=== PATIENT | female | born 1995 | race Caucasian/White ===

== ENCOUNTER 2020-02-12 12:20 | Inpatient (IN) | payer SELFPAY, OTHER ==
[2020-02-12] VITALS (19 sets, daily range): BP systolic 101–132; BP diastolic 53–84; PULSE 68–98; RESP 13–20; TEMP 36.4–37.3; O2SAT 93–98; BMI 33.7
[2020-02-12] MEDS: Lactated Ringers 1,000 ML 999 ML IV (12:45)
--- NOTE | 2020-02-12 12:51 | HP.PCM_ITS ---
History Date of Admission: 02/12/20 Final JACQUELYN: 02/14/20 Final JACQUELYN Source: US <20 weeks Gestational age: 39 Weeks and 5 Days History of this : This is a 24 year-old, @ 39 5/7 weeks gestation by LMP presents c/o ctxs. Patient presents with her training and quality manager. They report that she has been laboring for a couple of days with some irregular contractions. She denies any gross vaginal bleeding or leaking of fluid. Earlier this morning the training and quality manager checked the patient who was found to be approximately 7 cm and was felt to be compound presentation or nonvertex. She called me and I instructed them to immediately go to the hospital. She arrived to labor and delivery. I performed a brief ultrasound confirming to heart tones and breech presentation of baby A in vertex presentation of baby B. Patient and the training and quality manager denies any problems during the . Blood pressures have been normal. They states she had an ultrasound approximately 2 months ago which confirmed that they were AGA x2. Allergies No Known Allergies Allergy (Verified 02/12/20 12:49) Smoking Status: Never smoker Alcohol: None Number of Fetus(es): 2 History Past Pregnancies: Past Pregnancies Delivery Date Name GA/ Weeks Outcome Route Wt Sex Labor Length Anesthesia Delivery Location Provider FOB Expected Infant Delivery Method: Primary Section - ROCIO Review of Systems Constitutional: Denies: Chills, Fever Eyes: Denies: Blurred vision Cardiovascular: Denies: Chest Pain Respiratory: Denies: Cough Gastrointestinal: Denies: Diarrhea, Nausea, Vomiting Genitourinary: Denies: Dysuria Skin: Denies: Rash Neurological: Denies: Blurred vision, Change in Speech, Slurred speech Hematologic/ Lymphatic: Denies: Anemia, Hx of blood clot Physical Exam Vitals: Vital Signs Temp 99.1 F 02/12/20 12:39 General: Alert, Cooperative, No apparent distress Cardiovascular: Regular rate Lungs: Normal air movement Abdomen: Bowel Sounds Present, Non-Distended, Gravid, Appropriate for Gestational Age - with twins Extremities:: Other - edema 1+ Neurological: Neuro grossly intact Estimated gestational size: Appropriate for gestational size Presentation: Breech Assessment/Plan This is a 24 year-old, 1 para 0 at 39-5/7 weeks with attic dichorionic twin gestation, breech presentation of fetus A. Risk benefits and alternatives and personnel involved with primary section were discussed with the patient and her , questions were answered to their satisfaction they desired to proceed. We will have SCDs, antibiotic prophylaxis. Offered rapid Covid testing and patient is deciding. We will proceed as soon as possible pending lab results so we can place a spinal and less heart tones are nonreassuring or emergent indication arises.
[2020-02-12 12:58] LABS: Bacteria 0 SEEN /hpf (None Seen); Mucous, Urine 0 SEEN /hpf (<or=2+); Red Blood Cells-Urine 0 SEEN /hpf (0-5)
[2020-02-12 13:04] LABS: Absolute Neutrophil Count 8.8 X10^3/uL (2.0-7.7); Basophil# 0.01 X10^3/uL; Basophil% 0.1 % (0-1); Eosinophil# 0.14 X10^3/uL; Eosinophils% 1.2 % (0-5); Hemoglobin 13.1 g/dL (12.0-15.0); Lymphocyte % 19.9 % (19-41); Mean Corp Hgb Conc 32.8 g/dL (32-36); Mean Corpuscular Hgb 30.3 pg (27.0-32.0); Mean Corpuscular Volume 92.4 fL (81-99); Mean Platelet Vol. 10.6 fl (6.2-12.0); Monocyte# 0.61 X10^3/uL; NRBC Flagged by Analyzer 0 % (0-5); Neutrophil # 8.83 X10^3/uL (2.7-7.7); Neutrophil % 73.1 % (47-70); Platelet Count 180 K/mm3 (150-450); RBC Distribution Width CV 13.5 % (11.6-14.6); RBC Distribution Width SD 46.2 fl (35.1-43.9); Red Blood Count 4.33 M/mm3 (4.2-5.4); White Blood Count 12.1 K/mm3 (4.4-11.0)
[2020-02-12 13:13] LABS: Color, Urine Yellow (Yellow); Glucose, Dipstick Normal (Normal); Ketone-Dipstick Negative (Negative); Leukocyte Esterase-Dipstick 25 /ul (Negative); Nitrite-Dipstick Negative (Negative); Occult Blood-Urine Negative /ul (Negative); Protein-Dipstick Negative (Negative); Specific Gravity, Urine 1.005 (1.002-1.030); Squamous Epithelial Cells - UA 0-5 SEEN /hpf (5-10); Urine Bilirubin Dipstick Negative (Negative); Urine Clarity Clear (Clear); Urine Urobilinogen Normal (Normal); White Blood Cells 0-5 SEEN /hpf (0-5)
[2020-02-12] MEDS: Sodium Citrate/Citric Acid 30 ML UDC PO (13:17)
[2020-02-12] MEDS: Acetaminophen 500 MG Tablet 1000 MG PO ×2 (13:17→19:09)
[2020-02-12 13:28] LABS: Rubella IgG Non-Reactive (Nonreactive)
[2020-02-12] MEDS: Cefazolin 2 GM in 0.9% Normal Saline 100 ML IV (13:43)
[2020-02-12 13:52] LABS: Amphetamine Urine VISTA NEGATIVE (<1000 ng/mL); Barbiturate Urine VISTA NEGATIVE (< 200 ng/mL); Benzodiazepine Urine VISTA NEGATIVE (< 200 ng/mL); Cocaine Urine VISTA NEGATIVE (< 300 ng/mL); Ecstacy Urine VISTA NEGATIVE (< 500 ng/mL); Methadone Urine VISTA NEGATIVE (< 300 ng/mL); PCP Urine VISTA NEGATIVE (< 25 ng/mL); THC Urine VISTA NEGATIVE (< 50 ng/mL); Vista UDS pH Range 7
[2020-02-12 13:58] LABS: HIV - WCH Non-Reactive (Nonreactive); Hepatitis B Surface Antigen Non-Reactive (Nonreactive); Hepatitis C Antibody Non-Reactive (Nonreactive)
--- NOTE | 2020-02-12 14:27 | OP.PCM_ITS ---
Delivery Classification: ROCIO Final JACQUELYN: 02/14/20 Final JACQUELYN Source: LMP Gestational age: 39 Weeks and 5 Days desk representative: Lizabeth Pantoja Type of Anesthesia:: Spinal Special Medications: duramorph Implants Used: none Date of Procedure: 02/12/20 Pre-Operative Diagnosis: breech twin A, labor, 39 week dichorionic diamniotic twins Post-Operative Diagnosis: same Description of Procedure: The patient was taken to the operating room. She was prepped and draped in the dorsal supine position with a leftward tilt. A Pfannenstiel skin incision was made approximately 2 cm above the symphysis pubis and carried through to underlying layer fascia with the scalpel. The fascia was incised incised in the midline and extended laterally with dissection. The fascia was dissected off the superior rectus muscle with blunt and sharp dissection. The rectus muscles were in the midline and the peritoneum was entered bluntly. The peritoneal incision was stretched and the bladder blade was placed. The uterine incision was made in a low transverse fashion with the scalpel and extended superiorly and inferiorly with blunt dissection. The amniotic membranes were ruptured bluntly and clear amniotic fluid returned. Baby A's breech was brought to the incision and the legs were swept out individually. He was turned to back up and a towel was placed around his trunk. The arms were swept out medially and then with gentle fundal pressure and gentle traction on the maxilla, the remainder the head was delivered in the flexed position without difficulty. The mouth and nares were bulb suctioned as the cord was clamped and cut and as the was not immediately crying it was handed off quickly to the waiting nursing staff. Baby B was brought down to the incision in the vertex position. Membranes were ruptured bluntly. The infant's head was brought to the incision in the flexed position and delivered without difficulty. The remainder of the infant was delivered with gentle traction and fundal pressure in the standard fashion. The mouth and nares were bulb suctioned. The cord was clamped and cut as the infant was stimulated. Cord clamping was delayed. The infant was handed off to the waiting nursing staff. The placenta was delivered with fundal massage and gentle traction in the standard fashion. The uterus was exteriorized and cleared of all clots and debris. . The uterine incision was closed with #1 Vicryl in a running locked fashion. A second layer of the same suture was used in an imbricating fashion. The incision was examined and was found to be hemostatic. Indy was placed over the incision. The uterus was placed back into the peritoneal cavity and hemostasis was again confirmed. The rectus muscles were examined and any bleeding was Bovie cauterized. The parietal peritoneum and rectus muscles were closed en bloc with an 0 Vicryl running suture. The surgical teams outer gloves were then changed. The rectus fascia was examined and any bleeding was Bovie cauterized and the rectus fascia was closed with 1 Vicryl suture in a running standard fashion. The subcutaneous tissue was examining and any bleeding was Bovie cauterized. The subcutaneous tissue was reapproximated with 3-0 Vicryl suture. The skin was closed in a subcuticular fashion by the SAP BPC DEVELOPER with me present in the labor and delivery suite. I performed the remainder of the procedure with assistance. All sponge, lap, and needle counts were correct. The patient was taken to her room for recovery in a stable condition. Delivery time twin A 1359 Twin B 1400 Start time:1358 STop time:1424 Amniotic Membrane Rupture Type: Artificial Amniotic Fluid Description: Clear Placenta Disposition: [facility] Specimen(s) sent to pathology: none Drain: Vela to straight drain Fluids Replaced: 1000 Cord Entanglement: None Cord Vessel Description: 3 Vessels Esitmated Blood Loss (ml): 900 Gender: Male - Peng Delayed cord clamping: No Antibiotic Given: Ancef 2 grams IV x1, - - zithromax stopped due to patient turning very red during infusions, given benadryl Complications: None - Admit VTE Documentation VTE Present on Admission: No VTE Mechan Device Prophylaxis: SCD's VTE Pharm Prophylaxis ordered?: No Reason prophylaxis not ordered:: Procedure Not Indicated Baby B - Information Amniotic Membrane Rupture Type: Artificial Presentation: Vertex - Operative Information Cord Entanglement: None Cord Vessel Description: 3 Vessels Infant B gender: Female - Niurka
[2020-02-12] MEDS: Oxytocin 30 units/NS 500 ml 30 UNITS/500 ML IV.SOLN 167 UNITS IV (15:09)
[2020-02-12 16:07] LABS: Chlamydia Trachomatis by PCR Negative (Negative); Neisserai gonorrhoeae by PCR Negative (Negative); Probe Check PASS; Sample Adequacy Control PASS; Specimen Processing Control PASS
[2020-02-12] MEDS: Methylergonovine 0.2 MG/ML Ampul IM (17:00)
--- NOTE | 2020-02-12 17:20 | NURSING ---
Constant trickle of rubra lochia noted when checking fundus on patient. Fundus firm and at umbilicus. Peripad changed for moderate amount of Rubra Lochia. Plan to give Methergine and will continue to monitor.
[2020-02-12] MEDS: Lactated Ringers 1,000 ML 100 ML IV (18:21)
[2020-02-12] MEDS: Ketorolac 30 MG/ML Syringe IV (20:05)
[2020-02-12] MEDS: 0.9% Saline Lock 10 ML Syringe IV (20:06)
[2020-02-13] MEDS: Acetaminophen 500 MG Tablet 1000 MG PO ×4 (00:45→19:30)
[2020-02-13 00:46] VITALS: PULSE 93; RESP 18; O2SAT 95
[2020-02-13] MEDS: Ketorolac 30 MG/ML Syringe IV ×3 (01:42→13:22)
[2020-02-13] MEDS: 0.9% Saline Lock 10 ML Syringe IV ×2 (01:42→08:14)
[2020-02-13 03:52] VITALS: BP 99/61; PULSE 75; RESP 16; TEMP 36.9
[2020-02-13 04:11] LABS: Hemoglobin 11.8 g/dL (12.0-15.0); Mean Corp Hgb Conc 33.7 g/dL (32-36); Mean Corpuscular Hgb 31.2 pg (27.0-32.0); Mean Corpuscular Volume 92.6 fL (81-99); Mean Platelet Vol. 10.5 fl (6.2-12.0); Platelet Count 156 K/mm3 (150-450); RBC Distribution Width CV 13.4 % (11.6-14.6); RBC Distribution Width SD 45.5 fl (35.1-43.9); Red Blood Count 3.78 M/mm3 (4.2-5.4); White Blood Count 16.2 K/mm3 (4.4-11.0)
--- NOTE | 2020-02-13 06:48 | NURSING ---
Patient educated on MMR vaccine. Patient declines at this time.
--- NOTE | 2020-02-13 07:19 | PCM.PN.OB ---
Subjective: pain well controlled, average lochia - Physical Exam Vitals/I&O's: Vital Signs Temp Pulse Resp BP Pulse Ox 98.4 F 75 16 99/61 95 02/13/20 03:52 02/13/20 03:52 02/13/20 03:52 02/13/20 03:52 02/13/20 00:46 Oxygen Delivery Method Room Air Weight: 94.892 kg Body Mass Index (BMI) 33.7 Intake and Output for Last 24 Hours 02/11/20 02/12/20 02/13/20 23:59 23:59 23:59 Intake Total 3835.83 / 3835.83 Output Total 1300 / 1300 800 / 800 Balance 2535.83 / 2535.83 -800 / -800 General: Alert, Cooperative, No apparent distress Abdomen: Soft, Distended - moderately, sofly, Tender - appropriately Skin: Incision - bandage is clean, dry and intact Microbiology Past 72 Hours 02/12/20 12:58 Mucosa - Nose SARS-CoV-2 Antigen (Rapid) - Final Laboratory Results 02/12/20 12:40: WBC 12.1 H, RBC 4.33, Hgb 13.1, Hct 40.0, MCV 92.4, MCH 30.3, MCHC 32.8, RDW Std Deviation 46.2 H, RDW Coeff of Caryl 13.5, Plt Count 180, MPV 10.6, Immature Gran % (Auto) 0.700, Neut % (Auto) 73.1 H, Lymph % (Auto) 19.9, [place] % (Auto) 5.0, Eos % (Auto) 1.2, Baso % (Auto) 0.1, Absolute Neuts (auto) 8.8 H, Absolute Lymphs (auto) 2.40, Nucleated RBC % 0 02/12/20 12:40: Blood Type AB POSITIVE, Antibody Screen NEGATIVE 02/12/20 12:40: Rubella IgG Antibody Non-Reactive 02/12/20 12:40: RPR Pending 02/12/20 12:40: Urine Opiates Screen NEGATIVE, Urine Methadone Screen NEGATIVE, Ur Barbiturates Screen NEGATIVE, Ur Phencyclidine Scrn NEGATIVE, Ur Amphetamines Screen NEGATIVE, U Methamphetamin-MDMA NEGATIVE, U Benzodiazepines Scrn NEGATIVE, Urine Cocaine Screen NEGATIVE, U Cannabinoids Screen NEGATIVE, Ur Drug Screen Comment 01/05/21 12:40: Hep Bs Antigen Non-Reactive, Hepatitis C Antibody Non-Reactive, HIV 1&2 Antibody Non-Reactive 02/12/20 12:40: Chlam trachomat DNA PCR Negative, N.gonorrhoeae DNA (PCR) Negative 02/12/20 12:40: Urine Color Yellow, Urine Clarity Clear, Urine pH 7.0, Ur Specific Collins 1.005, Urine Protein Negative, Urine Glucose (UA) Normal, Urine Ketones Negative, Urine Occult Blood Negative, Urine Nitrite Negative, Urine Bilirubin Negative, Urine Urobilinogen Normal, Ur Leukocyte Esterase 25 H, Urine RBC 0 SEEN, Urine WBC 0-5 SEEN, Ur Squamous Epith Cells 0-5 SEEN, Urine Bacteria 0 SEEN, Urine Mucus 0 SEEN 02/13/20 04:05: WBC 16.2 H, RBC 3.78 L, Hgb 11.8 L, Hct 35.0 L, MCV 92.6, MCH 31.2, MCHC 33.7, RDW Std Deviation 45.5 H, RDW Coeff of Caryl 13.4, Plt Count 156, MPV 10.5 Current Medications Acetaminophen (Acetaminophen 500 Mg Tablet) 1,000 mg PO Q6H [facility] Last Admin: 02/13/20 06:46 Dose: 1,000 mg Documented by: Bisacodyl (Bisacodyl 10 Mg Suppository) 10 mg RECTAL UD PRN PRN Reason: If no BM Diphenhydramine HCl (Diphenhydramine 25 Mg Capsule) 25 mg PO Q6H PRN PRN PRN Reason: ITCHING Stop: 02/13/20 14:52 Hydrocortisone (Hydrocortisone 2.5% Crm) 1 applic TOPICAL TID PRN PRN; Protocol PRN Reason: Discomfort Ibuprofen (Ibuprofen 600 Mg Tablet) 600 mg PO Q6H [facility] Ketorolac Tromethamine (Ketorolac 30 Mg/Ml Syringe) 30 mg IV Q6H [facility] Stop: 02/13/20 14:01 Last Admin: 02/13/20 01:42 Dose: 30 mg Documented by: Methylergonovine Maleate (Methylergonovine 0.2 Mg/Ml Ampul) 0.2 mg IM X1 PRN PRN Reason: Uterine Atony Last Admin: 02/12/20 17:00 Dose: 0.2 mg Documented by: Nalbuphine HCl (Nalbuphine 10 Mg/Ml Ampul) 5 mg IV Q3H PRN PRN PRN Reason: ITCHING Stop: 02/13/20 14:52 Naloxone HCl (Naloxone 0.4 Mg/Ml Syringe) 0.02 mg IV Q1M PRN PRN Reason: RR <10 and pt unresponsive Ondansetron HCl (Ondansetron 4 Mg/2 Ml Vial) 4 mg IV Q4H PRN PRN PRN Reason: Nausea Prochlorperazine Edisylate (Prochlorperazine 10 Mg/2 Ml Vial) 10 mg IV Q6H PRN PRN PRN Reason: NAUSEA Senna/Docusate Sodium (Senna/Docusate Sodium 1 Tablet) 0 tablet PO DAILY [facility] Simethicone (Simethicone 80 Mg Tablet) 80 mg PO PCHS PRN PRN Reason: Indigestion/stomach pain Sodium Chloride (0.9% Saline Lock 10 Ml Syringe) 5 - 15 ml IV UD PRN PRN Reason: SALINE FLUSH Last Admin: 02/13/20 01:42 Dose: 10 ml Documented by: Medical Necessity - Tobacco Use Smoking Status: Never smoker Assessment/Plan POD#1 s/p primary c/s for twins, twin 1 breech' patient is doing well routine care infants are and doing well
[2020-02-13 08:08] VITALS: BP 101/60; PULSE 80; RESP 16; TEMP 36.7; O2SAT 95
[2020-02-13] MEDS: Senna/Docusate Sodium 1 Tablet PO (09:46)
[2020-02-13 12:05] VITALS: BP 100/55; PULSE 84; RESP 16; TEMP 36.7; O2SAT 95
[2020-02-13] MEDS: Ibuprofen 600 MG Tablet PO (19:41)
[2020-02-13 20:05] VITALS: BP 115/63; PULSE 95; RESP 18; TEMP 37.2
[2020-02-14 01:28] VITALS: BP 111/67; PULSE 77; RESP 18; TEMP 36.9; O2SAT 98
[2020-02-14] MEDS: Acetaminophen 500 MG Tablet 1000 MG PO ×2 (01:31→07:46)
[2020-02-14] MEDS: Ibuprofen 600 MG Tablet PO ×2 (01:32→07:46)
[2020-02-14 01:36] LABS: Rapid Plasmin Reagin (RPR) NONREACTIVE (NONREACTIVE)
[2020-02-14 07:45] VITALS: BP 115/76; PULSE 69; RESP 18; TEMP 36.8; O2SAT 95
[2020-02-14] MEDS: Senna/Docusate Sodium 1 Tablet PO (07:45)
[2020-02-14 09:05] VITALS: BP 115/76; PULSE 69; RESP 18; TEMP 36.8; O2SAT 95
--- NOTE | 2020-02-14 09:12 | DCINST_ITS ---
Discharge Diet: No Restrictions Discharge Activity: May Drive, May Shower May resume sexual activity in: 6 weeks Weight Bearing Status: Weight bearing as tolerated Call your doctor if your incision/area has: Continuous Slow Oozing, Sudden Increased Bleeding, Increased Pain/ Swelling, Increased Redness, Foul Smelling Discharge, Swelling at the incision site Additional Instructions: If you experience any of the following, contact your healthcare provider. * Bleeding that soaks a pad every hour for 2 hours * Fever 100.4 or higher * Unrelieved incision or abdominal pain * Swelling, redness, discharge or bleeding from your incision or episiotomy site * Your incision begins to separate * Problems urinating (including inability to urinate or burning while urinating). * Visual changes * Severe headache * Flu-like symptoms * Pain or redness in one of both of your breasts * Pain, warmth, tenderness or swelling in your legs, especially the calf area * Frequent nausea and vomiting * Symptoms of depression or anxiety If you experience any of the following, call 911 or go to the nearest Emergency Room. * Chest pain * Problems breathing * Seizure activity * Partial or complete paralysis of a body part, slurred speech, weakness or drooping of the face, or a sudden inability to walk or hold your balance Allergies/Adverse Reactions: Allergies No Known Allergies Allergy (Verified 02/12/20 13:08) Medications to take at Discharge Acetaminophen [Tylenol] 1,000 mg PO Q6H tablet 02/14/20 Ibuprofen [Motrin] 600 mg PO Q6H tablet 02/14/20 Follow-Up: Call to make an appointment with your doctor for an incision check in 1-2 weeks. You will also need a 6 week post- follow up appointment. Test results from this visit will be discussed in further detail at your follow- up appointment, if applicable. Primary Care Physician: Care Physician,No Primary [Primary Care Provider] -
--- NOTE | 2020-02-14 09:12 | PCM.DCCSEC ---
Discharge Diet: No Restrictions Discharge Activity: May Drive, May Shower May resume sexual activity in: 6 weeks Weight Bearing Status: Weight bearing as tolerated Call your doctor if your incision/area has: Continuous Slow Oozing, Sudden Increased Bleeding, Increased Pain/ Swelling, Increased Redness, Foul Smelling Discharge, Swelling at the incision site Additional Instructions: If you experience any of the following, contact your healthcare provider. Bleeding that soaks a pad every hour for 2 hours Fever 100.4 or higher Unrelieved incision or abdominal pain Swelling, redness, discharge or bleeding from your incision or episiotomy site Your incision begins to separate Problems urinating (including inability to urinate or burning while urinating). Visual changes Severe headache Flu-like symptoms Pain or redness in one of both of your breasts Pain, warmth, tenderness or swelling in your legs, especially the calf area Frequent nausea and vomiting Symptoms of depression or anxiety If you experience any of the following, call 911 or go to the nearest Emergency Room. Chest pain Problems breathing Seizure activity Partial or complete paralysis of a body part, slurred speech, weakness or drooping of the face, or a sudden inability to walk or hold your balance Allergies/Adverse Reactions: Allergies No Known Allergies Allergy (Verified 02/12/20 13:08) Medications to take at Discharge Acetaminophen [Tylenol] 1,000 mg PO Q6H tablet 02/14/20 Ibuprofen [Motrin] 600 mg PO Q6H tablet 02/14/20 Follow-Up: Call to make an appointment with your doctor for an incision check in 1-2 weeks. You will also need a 6 week post- follow up appointment. Test results from this visit will be discussed in further detail at your follow-up appointment, if applicable. Primary Care Physician: Care Physician,No Primary [Primary Care Provider] -
--- NOTE | 2020-02-14 09:13 | PCM.PN.OB ---
Subjective: Pain controlled - Physical Exam Vitals/I&O's: Vital Signs Temp Pulse Resp BP Pulse Ox 98.3 F 69 18 115/76 95 02/14/20 07:45 02/14/20 07:45 02/14/20 07:45 02/14/20 07:45 02/14/20 07:45 Oxygen Delivery Method Room Air Weight: 209 lb 3.2 oz Body Mass Index (BMI) 33.7 Intake and Output for Last 24 Hours 02/12/20 02/13/20 02/14/20 23:59 23:59 23:59 Intake Total 3835.83 / 3835.83 Output Total 1300 / 1300 1200 / 1200 Balance 2535.83 / 2535.83 -1200 / -1200 General: Alert, Oriented x3 Abdomen: Soft, Non Tender, Non-Distended - ff mid & below umb; incision - bandage c/d/i Extremities: No Calf Tenderness Neurological: Cranial nerves II-XII grossly intact Microbiology Past 72 Hours 02/12/20 12:58 Mucosa - Nose SARS-CoV-2 Antigen (Rapid) - Final Laboratory Results 02/12/20 12:40: RPR NONREACTIVE Current Medications Acetaminophen (Acetaminophen 500 Mg Tablet) 1,000 mg PO Q6H [facility] Last Admin: 02/14/20 07:46 Dose: 1,000 mg Documented by: Bisacodyl (Bisacodyl 10 Mg Suppository) 10 mg RECTAL UD PRN PRN Reason: If no BM Hydrocortisone (Hydrocortisone 2.5% Crm) 1 applic TOPICAL TID PRN PRN; Protocol PRN Reason: Discomfort Ibuprofen (Ibuprofen 600 Mg Tablet) 600 mg PO Q6H [facility] Last Admin: 02/14/20 07:46 Dose: 600 mg Documented by: Methylergonovine Maleate (Methylergonovine 0.2 Mg/Ml Ampul) 0.2 mg IM X1 PRN PRN Reason: Uterine Atony Last Admin: 02/12/20 17:00 Dose: 0.2 mg Documented by: Naloxone HCl (Naloxone 0.4 Mg/Ml Syringe) 0.02 mg IV Q1M PRN PRN Reason: RR <10 and pt unresponsive Ondansetron HCl (Ondansetron 4 Mg/2 Ml Vial) 4 mg IV Q4H PRN PRN PRN Reason: Nausea Prochlorperazine Edisylate (Prochlorperazine 10 Mg/2 Ml Vial) 10 mg IV Q6H PRN PRN PRN Reason: NAUSEA Senna/Docusate Sodium (Senna/Docusate Sodium 1 Tablet) 0 tablet PO DAILY [facility]OCHILT Last Admin: 02/14/20 07:45 Dose: 1 tablet Documented by: Simethicone (Simethicone 80 Mg Tablet) 80 mg PO PCHS PRN PRN Reason: Indigestion/stomach pain Last Admin: 02/13/20 19:45 Dose: 80 mg Documented by: Sodium Chloride (0.9% Saline Lock 10 Ml Syringe) 5 - 15 ml IV UD PRN PRN Reason: SALINE FLUSH Last Admin: 02/13/20 08:14 Dose: 10 ml Documented by: Medical Necessity - Tobacco Use Smoking Status: Never smoker Assessment/Plan POD#2 D/c home per patient request Encouraged PP care
== END 2020-02-14 11:35 | disposition home or self-care (01) | DRG 788 ==
PROVIDERS: Admitting Provider Obstetrics & Gynecology; Referring Provider Obstetrics & Gynecology; Visit Provider Obstetrics & Gynecology
DX: O32.1XX1 Maternal care for breech presentation, fetus 1 (principal); O30.043 Twin pregnancy, dichorionic/diamniotic, third trimester; Z3A.39 39 weeks gestation of pregnancy; Z37.2 Twins, both liveborn
CPT/HCPCS: 59025; 59050; 80307; 81001; 85025; 85027; 86592; 86703; 86762; 86803; 86850; 86900; 86901; 87340; 87426; 87491; 87591; 99218; J7120; A4216; G0378; J2405